=== PATIENT | female | born 1955 | race Caucasian/White ===

== ENCOUNTER 2019-07-01 08:59 | Outpatient (CLI) | payer OTHER ==
--- NOTE | 2019-07-01 09:41 | RAD ---
THREE VIEWS OF THE RIGHT KNEE: HISTORY: Right knee pain. FINDINGS: Three views of the right knee show no evidence of acute fracture or dislocation. Minimal degenerativ e changes are seen in the patellofemoral compartment. No knee effusion is seen. IMPRESSION: Mild right knee osteoarthritis without acute osseous abnormality. POS: [facility]
--- NOTE | 2019-07-01 09:44 | RAD ---
BILATERAL AP KNEES WEIGHT BEARING: FINDINGS/IMPRESSION: There is narrowing of the medial tibiofemoral compartments. No fracture or dislocation is seen. POS: [facility]
== END 2019-07-01 09:00 | disposition home or self-care (01) ==
LOC: NAV RAD 08:59
PROVIDERS: ATTEND Family Medicine
DX: M25.561 Pain in right knee (principal); M17.11 Unilateral primary osteoarthritis, right knee; M25.861 Other specified joint disorders, right knee; M25.862 Other specified joint disorders, left knee
CPT/HCPCS: 73565